=== PATIENT | male | born 1960 | race Caucasian/White ===

== ENCOUNTER 2016-11-10 07:01 | Outpatient (CLI) ==
[2014-07-21 11:02] VITALS: BMI 26.6
[2016-11-10 07:46] LABS: BASOPHILS % (AUTO) 0.4 % (0.0-3.0); EOSINOPHILS # (AUTO) 0.4 K/ul (0.0-0.7); EOSINOPHILS % (AUTO) 4.8 % (0.0-7.0); HEMATOCRIT 39.7 % (42.0-52.0); HEMOGLOBIN 13.8 g/dl (14.0-18.0); IMMATURE GRANULOCYTE % (AUTO) 0.2 % (0.0-5.0); LYMPHOCYTES # (AUTO) 2.8 K/uL (0.60-3.4); LYMPHOCYTES % (AUTO) 31.8 (10.0-50.0); MEAN CORPUSCULAR HEMOGLOBIN 33.1 pg (27.0-31.0); MEAN CORPUSCULAR HGB CONC 34.8 (31.8-35.4); MEAN CORPUSCULAR VOLUME 95.2 fl (80.0-94.0); MONOCYTES # (AUTO) 0.7 K/uL (0.4-2.0); MONOCYTES % (AUTO) 8.2 (0-10); NEUTROPHILS # (AUTO) 4.9 K/ul (2.0-6.9); NEUTROPHILS % (AUTO) 54.6; PLATELET COUNT 350 10^3/uL (140-440); RED BLOOD COUNT 4.17 10^6/ul (4.70-6.10); WHITE BLOOD COUNT 8.91 K/ul (4.2-10.2)
[2016-11-10 08:24] LABS: CREATININE 0.86 mg/dL (0.60-1.10)
[2016-11-10 08:25] LABS: BUN/CREATININE RATIO 9.3
[2016-11-10 08:38] LABS: ALBUMIN 3.9 g/dL (3.4-5.0); ALBUMIN/GLOBULIN RATIO 1.03; ANION GAP 14.8; BILIRUBIN,TOTAL 0.34 mg/dL (0.00-1.20); CALCIUM 9.9 mg/dL (8.2-10.2); CHOL/HDL RATIO 5.6 (4.5-6.4); POTASSIUM 3.8 mmol/L (3.5-5.1); TOTAL PROTEIN 7.7 g/dL (6.4-8.2)
--- NOTE | 2016-11-10 08:49 | US ---
EXAM: Carotid ultrasound HISTORY: Cervicalgia COMPARISON: None TECHNIQUE: Carotid ultrasound was performed using hoyos scale, color, and Doppler imaging was perfor med. FINDINGS: Right carotid: There is atherosclerotic plaque in the common carotid artery and bulb/proximal inter nal carotid artery. Peak systolic velocity measurement in the right internal carotid artery is 0.8 meters per second. End-diastolic velocity measurement in the right internal carotid artery is 0.3 m eters per second. Right internal to common carotid artery peak systolic velocity ratio is 1.1. Messi w in the right vertebral artery is antegrade. Left carotid: There is atherosclerotic plaque in the common carotid artery and bulb/proximal marketing operations intern al carotid artery. Peak systolic velocity measurement in the left internal carotid artery is 0.6 me ters per second. End-diastolic velocity measurement in the left internal carotid artery is 0.3 mete rs per second. Left internal to common carotid artery peak systolic velocity ratio measures 0.7. F low in the left vertebral artery is antegrade. IMPRESSION: 1. Right internal carotid: Mild (less than 50%) stenosis 2. Left internal carotid: Mild (less than 50%) stenosis
== END 2016-11-10 07:02 | disposition home or self-care (01) ==
LOC: RAD 07:01
PROVIDERS: ATTEND Nurse Practitioner Family
DX: M54.2 Cervicalgia (principal); E78.2 Mixed hyperlipidemia; E04.2 Nontoxic multinodular goiter; Z86.79 Personal history of other diseases of the circulatory system; Z12.5 Encounter for screening for malignant neoplasm of prostate
CPT/HCPCS: 36415; 80053; 80061; 84443; 85025

== ENCOUNTER 2017-03-23 11:03 | Outpatient (CLI) ==
[2014-07-21 11:02] VITALS: BMI 26.6
[2017-03-23 12:35] LABS: BASOPHILS # (AUTO) 0.1 K/uL (0-0.2); BASOPHILS % (AUTO) 0.8 % (0.0-3.0); EOSINOPHILS # (AUTO) 0.4 K/ul (0.0-0.7); EOSINOPHILS % (AUTO) 4.1 % (0.0-7.0); HEMATOCRIT 39.9 % (42.0-52.0); IMMATURE GRANULOCYTE % (AUTO) 0.6 % (0.0-5.0); LYMPHOCYTES # (AUTO) 2.4 K/uL (0.60-3.4); LYMPHOCYTES % (AUTO) 27.3 (10.0-50.0); MEAN CORPUSCULAR HEMOGLOBIN 33.3 pg (27.0-31.0); MEAN CORPUSCULAR HGB CONC 35.1 (31.8-35.4); MEAN CORPUSCULAR VOLUME 94.8 fl (80.0-94.0); MONOCYTES # (AUTO) 0.7 K/uL (0.4-2.0); MONOCYTES % (AUTO) 7.5 (0-10); NEUTROPHILS # (AUTO) 5.2 K/ul (2.0-6.9); NEUTROPHILS % (AUTO) 59.7; PLATELET COUNT 426 10^3/uL (140-440); RED BLOOD COUNT 4.21 10^6/ul (4.70-6.10); WHITE BLOOD COUNT 8.63 K/ul (4.2-10.2)
[2017-03-23 13:05] LABS: ALBUMIN 3.5 g/dL (3.4-5.0); ALBUMIN/GLOBULIN RATIO 0.92; ANION GAP 13.3; BILIRUBIN,TOTAL 0.27 mg/dL (0.00-1.20); BUN/CREATININE RATIO 19.44; CALCIUM 8.9 mg/dL (8.2-10.2); CHOL/HDL RATIO 6.7 (4.5-6.4); CREATININE 0.72 mg/dL (0.60-1.10); POTASSIUM 3.3 mmol/L (3.5-5.1); TOTAL PROTEIN 7.3 g/dL (6.4-8.2)
== END 2017-03-23 11:04 | disposition home or self-care (01) ==
LOC: LAB 11:03
PROVIDERS: ATTEND Nurse Practitioner Family
DX: E04.2 Nontoxic multinodular goiter (principal)
CPT/HCPCS: 36415; 80053; 80061; 84439; 84443; 85025

== ENCOUNTER 2017-04-27 09:09 | Outpatient (CLI) ==
[2014-07-21 11:02] VITALS: BMI 26.6
--- NOTE | 2017-04-27 10:32 | MRI ---
EXAM: MRI lumbar spine without IV contrast. DATE: 04/27/2017. HISTORY: Facet joint arthropathy, spinal stenosis. TECHNIQUE: Sagittal and axial T1W and T2W sequences of the lumbar spine along with sagittal IR and coronal T2W sequences were obtained using 1.2 Corry magnet. No IV contrast. COMPARISON: MRI L-spine 08 January 2015. FINDINGS: There are five [id number]-[id number] lumbar vertebra. Twelfth ribs appear somewhat small. The re is no lumbar scoliosis. No acute lumbar fracture, subluxation, osseous malignancy, or pars inter articularis defect is demonstrated. Lumbar vertebra are normal in height. Chronic Schmorl's nodes are identified at T10, T11, T12, and L1. Bone marrow signal is overall normal, except for significa nt degenerative changes at T11-12. Prominent osteophytes are noted at T11-12 and T12-L1, with small er osteophytes at several lumbar levels. Mild L3-4, minor L4-5, and moderate L5-S1 disc space narro wing is detected. No sacral fracture or stress reaction is evident. Mild SI joint arthritis (left greater than right) is observed. A T2W bright, T1W dark, 7.9 x 4.7 x 5.5 mm focus at the left marry idline S3 level is likely a Tarlov cyst. Conus medullaris terminates at T12-L1. Visible spinal cor d is normal. No retroperitoneal lymphadenopathy, paraspinal mass, or aortic aneurysm is identified. Paraspinal m usculature is symmetric bilaterally. Visible portions of the liver, spleen, right adrenal gland and right kidney are unremarkable. A subtle T2W bright area in the anterolateral cortex midzone left k idney may be volume averaging with the renal sinus complex or this cyst, but is not fully visualized . The left adrenal body appears somewhat nodular; however, this may be breathing motion artifact. No bowel obstruction or neoplasm is evident. A few sigmoid colon diverticuli are suspected. Segmental analysis: T11-12: Sagittal images reveal minor posterior disc bulge without cord compression or central steno sis. Each foramen is patent. T12-L1: Minimal posterior disc bulge does not cause conus compression, central stenosis or foramina l stenosis. L1-2: Minimal midline right paracentral disc bulge does not cause central stenosis or foraminal clarke nosis. L2-3: Minimal concentric disc bulge causes minor bilateral inferior foraminal encroachment. No miranda tral canal stenosis. L3-4: Small concentric disc bulge, mild right facet arthropathy, moderate left facet arthropathy, a nd mild ligamentum flavum hypertrophy cause mild central canal stenosis and minor narrowing at the o pening to each foramen. L4-5: Minimal concentric disc bulge, mild facet arthropathy, and mild ligamentum flavum hypertrophy cause mild bilateral foraminal stenoses. No central canal stenosis. Each L4 nerve root appears to contact the disc bulge near the lateral margin of the foramen. L5-S1: Minimal posterior disc bulge and mild left facet arthropathy cause slight left foraminal malinda rowing. No central canal stenosis. IMPRESSIONS: 1. Thoracolumbar mild spondylosis, mild/moderate facet arthropathy, and multilevel DDD - - similar to January 2015. 2. Multilevel foraminal narrowing (minor/mild). Each L4 nerve root contacts the disc bulge near th e foramen, and could be sources for pain/radiculopathy. 3. Mild central canal stenosis at L3-4. 4. T-L-spine chronic Schmorl's nodes. 5. 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 6. Minor sigmoid colon diverticulosis. 7. Left adrenal artifact vs small lesion (7.8 mm). If this is a true lesion, it is statistically l ikely to be a benign adenoma.
== END 2017-04-27 09:10 | disposition home or self-care (01) ==
LOC: RAD 09:09
PROVIDERS: ATTEND Pain Medicine Interventional Pain Medicine
DX: M47.816 Spondylosis without myelopathy or radiculopathy, lumbar region (principal); M48.06 Spinal stenosis, lumbar region; M51.36 Other intervertebral disc degeneration, lumbar region

== ENCOUNTER 2017-09-22 16:19 | Outpatient (CLI) ==
[2014-07-21 11:02] VITALS: BMI 26.6
[2017-09-22 16:46] LABS: BASOPHILS # (AUTO) 0.1 K/uL (0-0.2); BASOPHILS % (AUTO) 0.6 % (0.0-3.0); EOSINOPHILS # (AUTO) 0.3 K/ul (0.0-0.7); EOSINOPHILS % (AUTO) 3.3 % (0.0-7.0); HEMATOCRIT 37.7 % (42.0-52.0); HEMOGLOBIN 13.6 g/dl (14.0-18.0); IMMATURE GRANULOCYTE % (AUTO) 0.3 % (0.0-5.0); LYMPHOCYTES # (AUTO) 2.1 K/uL (0.60-3.4); LYMPHOCYTES % (AUTO) 23.1 (10.0-50.0); MEAN CORPUSCULAR HEMOGLOBIN 33.8 pg (27.0-31.0); MEAN CORPUSCULAR HGB CONC 36.1 (31.8-35.4); MEAN CORPUSCULAR VOLUME 93.8 fl (80.0-94.0); MONOCYTES # (AUTO) 0.7 K/uL (0.4-2.0); MONOCYTES % (AUTO) 7.7 (0-10); NEUTROPHILS # (AUTO) 5.8 K/ul (2.0-6.9); PLATELET COUNT 326 10^3/uL (140-440); RED BLOOD COUNT 4.02 10^6/ul (4.70-6.10); WHITE BLOOD COUNT 8.92 K/ul (4.2-10.2)
[2017-09-22 17:01] LABS: ALBUMIN 3.6 g/dL (3.4-5.0); ALBUMIN/GLOBULIN RATIO 0.92; ANION GAP 11.6; BILIRUBIN,TOTAL 0.42 mg/dL (0.00-1.20); BUN/CREATININE RATIO 8.75; CALCIUM 9.7 mg/dL (8.2-10.2); CHOL/HDL RATIO 4.2 (4.5-6.4); CREATININE 0.8 mg/dL (0.60-1.10); POTASSIUM 3.6 mmol/L (3.5-5.1); TOTAL PROTEIN 7.5 g/dL (6.4-8.2)
== END 2017-09-22 16:20 | disposition home or self-care (01) ==
LOC: LAB 16:19
PROVIDERS: ATTEND Nurse Practitioner Family
DX: M54.9 Dorsalgia, unspecified (principal); G89.29 Other chronic pain; E78.2 Mixed hyperlipidemia
CPT/HCPCS: 36415; 80053; 80061; 85025

== ENCOUNTER 2017-10-14 08:03 | Outpatient (CLI) ==
[2014-07-21 11:02] VITALS: BMI 26.6
--- NOTE | 2017-10-14 08:58 | CT ---
EXAM: CT of the chest with and without contrast History: Chest wall discomfort, short of breath Comparison: Chest radiograph 01/24/2016, chest CT 11/29/2015 Technique: Multiplanar CT images through the thorax were obtained with and without the administratio n of IV contrast Findings: Heart size is normal. Coronary calcifications. No pericardial effusion. No pathologicall y enlarged thoracic lymph nodes. Great vessels are unremarkable. No consolidation. No pleural flui d and no pneumothorax. Dependent atelectasis. No suspicious lung masses or lung nodules. Within the visualized upper abdomen, no acute findings. Stable partial calcification of the right ad renal gland most compatible with old trauma. No acute osseous abnormalities. Moderate to severe dege nerative disc disease at T11-T12. Impression: 1. No acute intrathoracic process. 2. Coronary artery disease. 3. Moderate to severe degenerative disc disease at T11-T12
== END 2017-10-14 08:04 | disposition home or self-care (01) ==
LOC: RAD 08:03
PROVIDERS: ATTEND Nurse Practitioner Family
DX: R07.89 Other chest pain (principal); R06.02 Shortness of breath

== ENCOUNTER 2017-10-19 06:50 | Outpatient (CLI) ==
[2014-07-21 11:02] VITALS: BMI 26.6
--- NOTE | 2017-10-19 10:07 | STRESSECHO ---
Date of Test: 10/19/17 Reason for Exam: CHEST DISCOMFORT, CORONARY ARTERY DISEASE, HYPERTENSION Ordering Physician: EM SMITH Current Medications: ATORVASTATIN, LISINOPRIL, WELLBUTRIN, LORTAB, ASA, MULTI VITAMIN, VITAMIN B12, VITAMIN E Physical Findings: S1, S2, NO S3 Resting EKG: SINUS RHYTHM, NO ACUTE CHANGES Target Heart Rate: 137/162 STAGE MPH/GRADE HEART RATE BPM BLOOD PRESSURE mmhg RHYTHM S-T SEGMENT +/- UP DOWN SYMPTOMS,COMMENTS At Rest 90 128/78 SR X NONE 1 1.7/10% 124 152/90 SR X NONE 2 2.5/12% 3 3.4/14% 4 4.2/16% 5 5.0/18% Immediately after 148 150/88 SR X SOB Durations of Exercise: 5:32 Maximum Heart Rate Reached: 148 Reason for Termination: SHORT OF BREATH 4 Minutes Post Exercise: HeartRate: 88 Blood Pressure: 130/72, ST-T WAVE -/ +, No Symptoms/Comments INTERPRETATION: OXYGEN SAT 98 % WITH EXERCISE, METS 7.0 1. TEST POSITIVE FOR ISCHEMIC ST-T WAVE CHANGES 2. NO CHEST PAIN OR DISCOMFORT 3. COUPLE OF PVC'S WITH EXERCISE 4. BLOOD PRESSURE RESPONSE NORMAL 5. NORMAL LEFT VENTRICULAR CONTRACTILITY RESTING/POST EXERCISE. RECOMMEND STRESS SESTAMIBI MTDD
--- NOTE | 2017-10-19 10:27 | ECHOSTRESS ---
Date of Exam: 10/19/17 Ordering Physician: EM SMITH Reason for Echo: CHEST DISCOMFORT, CORONARY ARTERY DISEASE, HYPERTENSION, STRESS TEST POSITIVE FOR ISCHEMIA M-Mode Normal Adult Results LV Dimensions Normal Adult Results AoV Opening excursions >1.6 LVEDD-base- 3.5-5.8 Ao root dimensions 2.0-3.7 LVESD-base- 3.1-4.6 L. Atrium dimensions 1.9-3.8 Post. Wall thickness 0.8-1.1 IV septum (thickness) 0.7-1.2 Post. Wall excursion 0.72-1.3 Septal motion Systolic motion R. Ventricular cavity 1.5-2.0 LVEF 60% Paradoxical septal wall motion 2-D: NORMAL LEFT VENTRICULAR CONTRACTILITY RESTING/POST EXERCISE M-MODE: MV: AV: TV: PV: CHAMBER SIZE: WALL MOTION: NORMAL LEFT VENTRICULAR CONTRACTILITY RESTING/POST EXERCISE PERICARDIUM: INTERPRETATION: 1. NORMAL LEFT VENTRICULAR CONTRACTILITY RESTING/POST EXERCISE RECOMMEND STRESS SESTAMIBI MTDD
== END 2017-10-19 06:51 | disposition home or self-care (01) ==
LOC: CAR 06:50
PROVIDERS: ATTEND Nurse Practitioner Family
DX: R07.89 Other chest pain (principal); I25.10 Atherosclerotic heart disease of native coronary artery without angina pectoris
CPT/HCPCS: 93005; 93010

== ENCOUNTER 2018-11-12 13:47 | Outpatient (CLI) ==
[2014-07-21 11:02] VITALS: BMI 26.6
== END 2018-11-12 13:48 | disposition home or self-care (01) ==
LOC: LAB 13:47 → RHC-LAB 13:48
PROVIDERS: ATTEND Nurse Practitioner Family
DX: I10 Essential (primary) hypertension (principal); F41.9 Anxiety disorder, unspecified; F32.9 Major depressive disorder, single episode, unspecified; Z12.5 Encounter for screening for malignant neoplasm of prostate
CPT/HCPCS: 36415; 80053; 80061; 84443; 85025

== ENCOUNTER 2019-03-01 15:35 | Outpatient (CLI) ==
[2014-07-21 11:02] VITALS: BMI 26.6
== END 2019-03-01 15:36 | disposition home or self-care (01) ==
LOC: RHC-LAB 15:35
PROVIDERS: ATTEND Nurse Practitioner Family
DX: E78.2 Mixed hyperlipidemia (principal); R79.89 Other specified abnormal findings of blood chemistry
CPT/HCPCS: 36415; 80053; 80061; 84443